=== PATIENT | male | born 1975 | race Two or more races ===

== ENCOUNTER 2018-07-07 08:04 | Day surgery (SDC) | payer OTHER | END 2018-07-07 12:20 | disposition home or self-care (01) | LOC: AMB-ENDOS 08:04 | DX: K57.30 Diverticulosis of large intestine without perforation or abscess without bleeding (principal); D12.5 Benign neoplasm of sigmoid colon ==

== ENCOUNTER → 2021-01-18 | Emergency (ER) | payer OTHER ==
[~2021-01-18] VITALS: Ht 167.6 cm; Wt 77.1 kg
== END | disposition home or self-care (01) ==
LOC: ER 15:55
DX: K57.32 Diverticulitis of large intestine without perforation or abscess without bleeding (principal); Z03.818 Encounter for observation for suspected exposure to other biological agents ruled out
CPT/HCPCS: 74177; Q9965